=== PATIENT | male | born 1945 | race Asian ===

== ENCOUNTER 2019-03-05 03:50 | Observation (INO) | payer OTHER, BC ==
[2019-03-05] MEDS ORDERED: ONDANSETRON 4 MG INJ IV (05:00)
[2019-03-05] MEDS ORDERED: morphine 2 MG INJ IV (05:00)
[2019-03-05] MEDS: PANTOPRAZOLE 40 MG INJ IV (06:23)
[2019-03-05] MEDS: AMLODIPINE 5 MG TAB PO (09:56)
[2019-03-05] MEDS: LOSARTAN 50 MG TAB PO (09:56)
== END 2019-03-05 11:15 | disposition home or self-care (01) ==
LOC: 5EC 03:50
PROVIDERS: Internal Medicine
DX: R10.9 Unspecified abdominal pain (principal); C22.0 Liver cell carcinoma; I10 Essential (primary) hypertension
CPT/HCPCS: 82105; 99217